=== PATIENT | female | born 1960 ===

== ENCOUNTER 2018-03-27 06:22 | Day surgery (SDC) | payer OTHER ==
[~2018-03-27] VITALS: Ht 167.6 cm; Wt 90.5 kg
[2018-03-27 07:21] VITALS: BP 153/75; PULSE 75; TEMP 97.6
[2018-03-27] MEDS ORDERED: CRESTOR 10MG10 MG PO (07:23)
[2018-03-27 08:38] VITALS: BP 145/79; PULSE 72; TEMP 97.3
[2018-03-27 08:53] VITALS: BP 144/79; PULSE 67
[2018-03-27 09:08] VITALS: BP 138/76; PULSE 72
[2018-03-27 09:23] VITALS: BP 153/77; PULSE 67
== END 2018-03-27 09:40 | disposition home or self-care (01) ==
LOC: SDCO 06:22
DX: Z12.11 Encounter for screening for malignant neoplasm of colon (principal)
CPT/HCPCS: J2250; J2405; J3010; J7030